=== PATIENT | female | born 1965 | race Caucasian/White ===

== ENCOUNTER 2017-09-28 02:50 | Inpatient (IN) | payer OTHER ==
[~2017-09-28] VITALS: Ht 154.9 cm; Wt 94.4 kg
[2017-09-28] VITALS (10 sets, daily range): BP systolic 115–184; BP diastolic 65–90; PULSE 83–120; RESP 14–28; TEMP 96.7–101.6; O2SAT 86–96
--- NOTE | 2017-09-28 03:10 | PD ---
HPI Chief Complaint: shortness of breath Time Seen by Provider: 03:04 Travel History International Travel<30 days: No Contact w/Intl Traveler<30days: No Traveled to known affect area: No History of Present Illness HPI 52-year-old female presents to the emergency department for complaint of fever chills cough shortness of breath wheezing and chest wall pain since . Patient has history of asthma COPD and tobaccoism. Patient states that she had the flu vaccine for the season. 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 Patient states she was seen on Thursday and started on a prednisone taper and Tamiflu but symptoms have worsened. Patient states last acetaminophen was some time early on Thursday and has taken no recent acetaminophen or ibuprofen. Patient denies any known cardiac disease hypertension dyslipidemia diabetes and has had previous pneumonia and bronchitis. [facility] Past Medical History Narrative Medical Asthma tobaccoism; splenectomy; nursing notes reviewed Social History Tobacco Use: Yes Allergies-Medications (Allergen,Severity, Reaction): Coded Allergies: bupropion (Verified Allergy, Unknown, 09/28/17) Narrative Medication Tamiflu albuterol prednisone Review of Systems Except as stated in HPI: all other systems reviewed are Neg General / Constitutional: Positive: Fever HENT: Positive: Congestion Cardiovascular: Positive: Chest Pain or Discomfort Respiratory: Positive: Cough, Wheezing Gastrointestinal: Positive: Nausea, No: Abdominal Pain Genitourinary: No: Dysuria, Flank Pain Musculoskeletal: Positive: Myalgias, Arthralgias Skin: No Rash Neurologic: No: Weakness Psychiatric: No: Anxiety Hematologic/Lymphatic: No: Lymph Node Enlargement Physical Exam Narrative GENERAL: Well-developed well-nourished female in no acute distress no respiratory distress resting supine with supplemental oxygen in place O2 saturation on 2 L/m nasal cannula 95% SKIN: Warm and dry. HEAD: Normocephalic. EYES: No scleral icterus. No injection or drainage. NECK: Supple, trachea midline. No JVD or lymphadenopathy. CARDIOVASCULAR: Increased Regular rate and rhythm without murmurs, gallops, or rubs. RESPIRATORY: Breath sounds equal bilaterally markedly diminished bilaterally with end expiratory wheezing. No accessory muscle use. GASTROINTESTINAL: Abdomen soft, non-tender, nondistended. MUSCULOSKELETAL: No cyanosis, or edema. BACK: Nontender without obvious deformity. No CVA tenderness. Data Data Last Documented VS Vital Signs Date Time Temp Pulse Resp B/P (MAP) Pulse Ox O2 Delivery O2 Flow Rate FiO2 09/28/17 04:46 99.3 105 22 132/74 (93) 92 Nasal Cannula 4.00 Orders Orders Complete Blood Count With Diff (09/28/17 03:04) Comprehensive Metabolic Panel (09/28/17 03:04) B-Type Natriuretic Peptide (09/28/17 03:04) Act Partial Throm Time (Ptt) (09/28/17 03:04) Prothrombin Time / Inr (Pt) (09/28/17 03:04) Magnesium (Mg) (09/28/17 03:04) Ckmb (Isoenzyme) Profile (09/28/17 03:04) Troponin I (09/28/17 03:04) Influenzae A/B Antigen (09/28/17 03:04) Blood Culture (09/28/17 03:04) Iv Access Insert/Monitor (09/28/17 03:04) Electrocardiogram (09/28/17 03:04) Ecg Monitoring (09/28/17 03:04) Oximetry (09/28/17 03:04) Oxygen Administration (09/28/17 03:04) Chest, Single Ap (09/28/17 03:04) Sodium Chloride 0.9% Flush (Ns Flush) (09/28/17 03:15) Methylprednisolone So Succ Inj (Solumedr (09/28/17 03:15) Albuterol-Ipratropium Neb (Duoneb Neb) (09/28/17 03:15) Lactic Acid (09/28/17 03:04) Acetaminophen (Tylenol) (09/28/17 03:15) Piperacil-Tazo 4.5 Gm Premix (Zosyn 4.5 (09/28/17 03:15) CKMB (09/28/17 03:09) CKMB% (09/28/17 03:09) Labs Laboratory Tests Test 09/28/17 03:09 09/28/17 04:32 White Blood Count 16.2 TH/MM3 Red Blood Count 4.94 MIL/MM3 Hemoglobin 15.6 GM/DL Hematocrit 46.5 % Mean Corpuscular Volume 94.2 FL Mean Corpuscular Hemoglobin 31.6 PG Mean Corpuscular Hemoglobin Concent 33.5 % Red Cell Distribution Width 13.4 % Platelet Count 357 TH/MM3 Mean Platelet Volume 8.7 FL Neutrophils (%) (Auto) 80.7 % Lymphocytes (%) (Auto) 12.6 % Monocytes (%) (Auto) 6.1 % Eosinophils (%) (Auto) 0.2 % Basophils (%) (Auto) 0.4 % Neutrophils # (Auto) 13.1 TH/MM3 Lymphocytes # (Auto) 2.0 TH/MM3 Monocytes # (Auto) 1.0 TH/MM3 Eosinophils # (Auto) 0.0 TH/MM3 Basophils # (Auto) 0.1 TH/MM3 CBC Comment AUTO DIFF Differential Comment AUTO DIFF CONFIRMED Platelet Estimate NORMAL Platelet Morphology Comment CLUMPED Red Cell Morphology Comment NORMAL Prothrombin Time 9.9 SEC Prothromb Time International Ratio 1.0 RATIO Activated Partial Thromboplast Time 28.5 SEC Blood Urea Nitrogen 21 MG/DL Creatinine 0.66 MG/DL Random Glucose 97 MG/DL Total Protein 8.0 GM/DL Albumin 3.8 GM/DL Calcium Level 9.0 MG/DL Magnesium Level 2.2 MG/DL Alkaline Phosphatase 92 U/L Aspartate Amino Transf (AST/SGOT) 34 U/L Alanine Aminotransferase (ALT/SGPT) 55 U/L Total Bilirubin 0.3 MG/DL Sodium Level 138 MEQ/L Potassium Level 3.8 MEQ/L Chloride Level 103 MEQ/L Carbon Dioxide Level 28.6 MEQ/L Anion Gap 6 MEQ/L Estimat Glomerular Filtration Rate 93 ML/MIN Total Creatine Kinase 103 U/L Creatine Kinase MB 3.4 NG/ML Troponin I LESS THAN 0.02 NG/ML B-Type Natriuretic Peptide 14 PG/ML MDM Medical Decision Making Medical Screen Exam Complete: Yes Emergency Medical Condition: Yes Medical Record Reviewed: Yes Interpretation(s) EKG: Sinus tachycardia rate [address] elevation injury pattern or ectopy noted Differential Diagnosis Exacerbation COPD, bronchitis, pneumonia, sepsis, ACS, CHF Narrative Course 52-year-old female with reported recent diagnosis of influenza receiving Tamiflu with worsening symptoms fever chills and productive cough with myalgias and arthralgias. Patient is a tobacco smoker with history of asthma and COPD. Patient placed on compliance monitor with continuous pulse oximetry supplemental oxygen 2 L/m administered and specimens collected and sent for resulting patient presumptively administered Zosyn 4.5 g IV piggyback patient is status post previous splenectomy Sepsis Criteria SIRS Criteria (2 or more): Temp > 100.9 or < 96.8, Heart rate over 90, WBC > 11663, < 4000 or > 10% bands Sepsis Criteria (SIRS+source): Infect source susp/known (pulmonary/bronchitis) Karen Tobar MD Sep 28, 2017 03:10
[2017-09-28] MEDS: RESP: ALBUTEROL 2.5 MG/IPRATROPIUM 0.5 MG NEB (SCH) INH ×2 (03:12→03:13)
[2017-09-28] MEDS ORDERED: SODIUM CHLORIDE 0.9% FLUSH 10 ML FLUSH IVF PRN (03:15)
[2017-09-28] MEDS ORDERED: ACETAMINOPHEN 325 MG TAB PO ONE (03:15)
[2017-09-28] MEDS ORDERED: PIPERACIL-TAZO 4.5 GM PREMIX 100 ML IV ONE (03:15)
[2017-09-28] MEDS ORDERED: methylPREDNISolone SOD SUCC 125 MG/2 ML VIAL IV PUSH ONE (03:15)
[2017-09-28 03:38] LABS: AUTOMATED NEUTROPHIL # 13.1 TH/MM3 (1.8-7.7); BASOPHIL # 0.1 TH/MM3 (0-0.2); BASOPHIL % 0.4 % (0.0-2.0); EOSINOPHIL % 0.2 % (0.0-4.0); HEMATOCRIT 46.5 % (35.0-46.0); HEMOGLOBIN 15.6 GM/DL (11.6-15.3); LYMPH % 12.6 % (9.0-44.0); MEAN CELL VOLUME 94.2 FL (80.0-100.0); MEAN CORPUSCULAR HEMOGLOBIN 31.6 PG (27.0-34.0); MEAN CORPUSCULAR HGB CONC 33.5 % (32.0-36.0); MEAN PLATELET VOLUME 8.7 FL (7.0-11.0); MONO % 6.1 % (0.0-8.0); NEUT % 80.7 % (16.0-70.0); PLATELET COUNT 357 TH/MM3 (150-450); RED BLOOD COUNT 4.94 MIL/MM3 (4.00-5.30); RED CELL DISTRIBUTION WIDTH 13.4 % (11.6-17.2); WHITE BLOOD COUNT 16.2 TH/MM3 (4.0-11.0)
[2017-09-28 03:45] LABS: CHLORIDE 103 MEQ/L (98-107); SODIUM (NA) 138 MEQ/L (136-145)
[2017-09-28 03:48] LABS: ALBUMIN 3.8 GM/DL (3.4-5.0); BICARBONATE 28.6 MEQ/L (21.0-32.0); GLUCOSE,RANDOM 97 MG/DL (74-106); MAGNESIUM 2.2 MG/DL (1.5-2.5)
[2017-09-28 03:49] LABS: BLOOD UREA NITROGEN 21 MG/DL (7-18)
[2017-09-28 03:50] LABS: PROTHROMBIN TIME - PATIENT 9.9 SEC (9.8-11.6)
[2017-09-28 03:52] LABS: ALT (GPT) 55 U/L (10-53); AST (GOT) 34 U/L (15-37); CREATININE 0.66 MG/DL (0.50-1.00); GLOMERULAR FILTRATION RATE 93 ML/MIN (>89)
[2017-09-28 03:53] LABS: TOTAL BILIRUBIN ADULT 0.3 MG/DL (0.2-1.0)
[2017-09-28 03:54] LABS: ALKALINE PHOSPHATASE 92 U/L (45-117)
[2017-09-28 03:57] LABS: TROPONIN I LESS THAN 0.02 NG/ML (0.02-0.05)
--- NOTE | 2017-09-28 04:02 | RADRPT ---
EXAM DATE/TIME: 09/28/2017 03:35 [place] COMPARISON: No previous studies available for comparison. INDICATIONS : Shortness of breath for 3 days ago, progressively getting worse. Pasr 6 hours chest pain and short of breath. MEDICAL HISTORY : Bronchitis, Asthma. SURGICAL HISTORY : None. ENCOUNTER: Initial ACUITY: 3 days PAIN SCORE: 8/10 LOCATION: Left chest radiating to left arm and towards the back. FINDINGS: A single view of the chest demonstrates the lungs to be symmetrically aerated without evidence of mas s, infiltrate or effusion. The cardiomediastinal contours are unremarkable. Osseous structures are intact. CONCLUSION: No acute disease. Dale Padilla MD on September 28, 2017 at 4:00 Board Certified Radiologist. This report was verified electronically.
[2017-09-28] MEDS ORDERED: SODIUM CHLOR 0.9% 1000 ML INJ 1,000 ML IV SCH (05:05)
[2017-09-28] MEDS ORDERED: MAGNESIUM HYDROXIDE SUSP 30 ML CUP PO PRN (05:15)
[2017-09-28] MEDS ORDERED: MORPHINE SULFATE 2 MG/ML INJ IV PUSH PRN (05:15)
[2017-09-28] MEDS ORDERED: SENNOSIDES 8.6 MG TAB PO PRN (05:15)
[2017-09-28] MEDS ORDERED: Vancomycin Consult Pharmacy 1 EA OTHER SCH (05:15)
[2017-09-28] MEDS ORDERED: LACTULOSE SYRUP 20 GM/30 ML CUP PO PRN (05:15)
[2017-09-28] MEDS ORDERED: AZITHROMYCIN INJ 500 MG in SODIUM CHLOR 0.9% 250 ML INJ 250 ML IV ONE (05:15)
[2017-09-28] MEDS ORDERED: BISACODYL 10 MG SUPP RECTAL PRN (05:15)
[2017-09-28] MEDS ORDERED: ONDANSETRON HCL 4 MG/2 ML VIAL IVP PRN (05:15)
[2017-09-28] MEDS ORDERED: SODIUM CHLORIDE 0.9% FLUSH 10 ML FLUSH IV FLUSH PRN (05:15)
[2017-09-28] MEDS: methylPREDNISolone SOD SUCC 40 MG/1 ML VIAL IV PUSH SCH ×4 (05:51→23:15)
[2017-09-28] MEDS ORDERED: VANCOMYCIN 1,500 MG/NS 500 ML IV ONE ×2 (07:00)
[2017-09-28] MEDS: DOCUSATE SODIUM 50 MG/SENNA 8.6 MG TAB PO SCH ×3 (09:00→22:06)
[2017-09-28] MEDS: guaiFENesin E.R. 600 MG TAB PO SCH ×2 (09:46→22:05)
[2017-09-28] MEDS: SODIUM CHLORIDE 0.9% FLUSH 10 ML FLUSH IV FLUSH SCH ×2 (09:47→22:05)
[2017-09-28] MEDS: RESP: ALBUTEROL 2.5 MG/IPRATROPIUM 0.5 MG NEB (PRN) NEB ×5 (10:01→23:30)
--- NOTE | 2017-09-28 11:00 | HHI.HP ---
HPI [facility] Primary [facility] Physician Unknown Admission Diagnosis exac copd/bronchitis; sepsis Diagnoses: (1) Sepsis (2) Chronic obstructive pulmonary disease with hypoxia (3) COPD with exacerbation (4) Bronchitis (5) Respiratory failure with hypoxia Chief Complaint: febrile episode, cough and wheezing Travel History International Travel<30 Days: No Contact w/Intl Traveler <30 Da: No Traveled to Known Affected Are: No Sepsis Criteria SIRS Criteria (2 or more): Temp > 100.9 or < 96.8, Heart rate over 90, WBC > 91776, < 4000 or > 10% bands Sepsis Criteria (SIRS+source): Infect source susp/known History of Present Illness 52 year-old female with a history of COPD presented to the ED for evaluation of Febrile episode and shortness of breath associated with cough production along with wheezing since , 09/24/17 Patient also reported chest wall pain mostly associated with coughing and deep inspiration. Patient was seen at a local urgent care on Thursday and was diagnosed with flu for which was prescribed Tamiflu and was started on prednisone taper however denies any improvement of her symptoms. Also reported stress increased frequency use of inhaler without any significant improvements of her shortness of breath as well as wheezing. She endorsed 30+ years of tobacco use. On Admission, patient was febrile with MAXIMUM TEMPERATURE of 101.6, HR 111, RR 28, BP 156/80 and 86% on RA. Chest x- ray was negative. She has no GI bleed. Review of Systems Except as stated in HPI: all other systems reviewed are Neg Past Family Social History Past Medical History COPD Asthma Tobaccoism Past Surgical History Splenectomy Appendectomy Hernia repair Reported Medications Tamiflu Allergies: Coded Allergies: bupropion (Verified Allergy, Unknown, 09/28/17) Family History Mother from complication of COPD Social History patient smokes one pack per day 36+ years Physical Exam Vital Signs Vital Signs Date Time Temp Pulse Resp B/P (MAP) Pulse Ox O2 Delivery O2 Flow Rate FiO2 09/28/17 10:04 95 Nasal Cannula 4.00 09/28/17 08:00 97.6 83 20 115/65 (82) 96 09/28/17 06:15 09/28/17 06:01 98.8 95 20 140/84 (102) 94 Nasal Cannula 4.00 09/28/17 04:46 99.3 105 22 132/74 (93) 92 Nasal Cannula 4.00 09/28/17 04:42 85 Room Air 09/28/17 04:00 100.5 120 22 148/74 (98) 93 Nasal Cannula 4.00 09/28/17 03:05 92 Nasal Cannula 4.00 09/28/17 02:55 101.6 111 28 156/80 (105) 86 Physical Exam GENERAL: This is a well-nourished, well-developed patient, in no apparent distress. SKIN: No rashes, ecchymoses or lesions. Cool and dry. HEAD: Atraumatic. Normocephalic. No temporal or scalp tenderness. EYES: Pupils equal round and reactive. Extraocular motions intact. No scleral icterus. No injection or drainage. ENT: Nose without bleeding, purulent drainage or septal hematoma. Throat without erythema, tonsillar hypertrophy or exudate. Uvula midline. Airway patent. NECK: Trachea midline. No JVD or lymphadenopathy. Supple, nontender, no meningeal signs. CARDIOVASCULAR: Regular rate and rhythm without murmurs, gallops, or rubs. RESPIRATORY: Clear to auscultation. Breath sounds decrease bilaterally.+ Bilateral expiratory wheezes GASTROINTESTINAL: Abdomen soft, non-tender, nondistended. No hepato-splenomegaly , or palpable masses. No guarding. MUSCULOSKELETAL: Extremities without clubbing, cyanosis, or edema. No joint tenderness, effusion, or edema noted. No calf tenderness. Negative Homans sign bilaterally. NEUROLOGICAL: Awake and alert. Cranial nerves II through XII intact. Motor and sensory grossly within normal limits. Five out of 5 muscle strength in all muscle groups. Normal speech. Laboratory Laboratory Tests Test 09/28/17 03:09 09/28/17 04:32 White Blood Count 16.2 Red Blood Count 4.94 Hemoglobin 15.6 Hematocrit 46.5 Mean Corpuscular Volume 94.2 Mean Corpuscular Hemoglobin 31.6 Mean Corpuscular Hemoglobin Concent 33.5 Red Cell Distribution Width 13.4 Platelet Count 357 Mean Platelet Volume 8.7 Neutrophils (%) (Auto) 80.7 Lymphocytes (%) (Auto) 12.6 Monocytes (%) (Auto) 6.1 Eosinophils (%) (Auto) 0.2 Basophils (%) (Auto) 0.4 Neutrophils # (Auto) 13.1 Lymphocytes # (Auto) 2.0 Monocytes # (Auto) 1.0 Eosinophils # (Auto) 0.0 Basophils # (Auto) 0.1 CBC Comment AUTO DIFF Differential Comment AUTO DIFF CONFIRMED Platelet Estimate NORMAL Platelet Morphology Comment CLUMPED Red Cell Morphology Comment NORMAL Prothrombin Time 9.9 Prothromb Time International Ratio 1.0 Activated Partial Thromboplast Time 28.5 Blood Urea Nitrogen 21 Creatinine 0.66 Random Glucose 97 Total Protein 8.0 Albumin 3.8 Calcium Level 9.0 Magnesium Level 2.2 Alkaline Phosphatase 92 Aspartate Amino Transf (AST/SGOT) 34 Alanine Aminotransferase (ALT/SGPT) 55 Total Bilirubin 0.3 Sodium Level 138 Potassium Level 3.8 Chloride Level 103 Carbon Dioxide Level 28.6 Anion Gap 6 Estimat Glomerular Filtration Rate 93 Total Creatine Kinase 103 Creatine Kinase MB 3.4 Troponin I LESS THAN 0.02 B-Type Natriuretic Peptide 14 Lactic Acid Level 1.4 Date/Time Source Procedure Growth Status 09/28/17 03:14 Blood Peripheral Aerobic Blood Culture Pending Received 09/28/17 03:14 Blood Peripheral Anaerobic Blood Culture Pending Received 09/28/17 03:20 Nasal Washing Influenza Types A,B Antigen (DELIO) - Final NEGATIVE FOR FLU A AND B ANTIGEN.... Complete Result Diagram: 09/28/1730809/28/17308 Imaging Last Impressions Chest X-Ray 09/28/17303 Signed Impressions: Service Date/Time: Thursday, September 28, 2017 03:35 - CONCLUSION: No acute disease. Dale Padilla MD Septic Shock Reassessment Septic shock perfusion: reassessment completed Caprini VTE Risk Assessment Caprini VTE Risk Assessment: No/Low Risk (score <= 1) Caprini Risk Assessment Model Point Value = 1 Point Value = 2 Point Value = 3 Point Value = 5 Age 41-60 Minor surgery BMI > 25 kg/m2 Swollen legs Varicose veins or History of unexplained or recurrent spontaneous Oral contraceptives or hormone replacement Sepsis (< 1 month) Serious lung disease, including pneumonia (< 1 month) Abnormal pulmonary function Acute myocardial infarction Congestive heart failure (< 1 month) History of inflammatory bowel disease Medical patient at bed rest Age 61-74 Arthroscopic surgery Major open surgery (> 45 min) Laparoscopic surgery (> 45 min) Malignancy Confined to bed (> 72 hours) Immobilizing plaster cast Central venous access Age >= 75 History of VTE Family history of VTE Factor V Leiden Prothrombin [id number] Lupus anticoagulant Anticardiolipin antibodies Elevated serum homocysteine Heparin-induced thrombocytopenia Other congenital or acquired thrombophilia Stroke (< 1 month) Elective arthroplasty Hip, pelvis, or leg fracture Acute spinal cord injury (< 1 month) Prophylaxis Regimen Total Risk Factor Score Risk Level Prophylaxis Regimen 0-1 Low Early ambulation 2 Moderate Order ONE of the following: *Sequential Compression Device (SCD) *Heparin 5000 units SQ BID 3-4 Higher Order ONE of the following medications: *Heparin 5000 units SQ TID *Enoxaparin/Lovenox 40 mg SQ daily (WT < 150 kg, CrCl > 30 mL/min) *Enoxaparin/Lovenox 30 mg SQ daily (WT < 150 kg, CrCl > 10-29 mL/min) *Enoxaparin/Lovenox 30 mg SQ BID (WT < 150 kg, CrCl > 30 mL/min) AND/OR *Sequential Compression Device (SCD) 5 or more Highest Order ONE of the following medications: *Heparin 5000 units SQ TID (Preferred with Epidurals) *Enoxaparin/Lovenox 40 mg SQ daily (WT < 150 kg, CrCl > 30 mL/min) *Enoxaparin/Lovenox 30 mg SQ daily (WT < 150 kg, CrCl > 10-29 mL/min) *Enoxaparin/Lovenox 30 mg SQ BID (WT < 150 kg, CrCl > 30 mL/min) AND *Sequential Compression Device (SCD) Assessment and Plan Problem List: (1) Sepsis ICD Code: A41.9 - Sepsis, unspecified organism (2) Respiratory failure with hypoxia ICD Code: J96.91 - Respiratory failure, unspecified with hypoxia (3) Chronic obstructive pulmonary disease with hypoxia ICD Code: J44.9 - Chronic obstructive pulmonary disease, unspecified; R09.02 - Hypoxemia (4) Bronchitis ICD Code: J40 - Bronchitis, not specified as acute or chronic (5) COPD with exacerbation ICD Code: J44.1 - Chronic obstructive pulmonary disease with (acute) exacerbation Assessment and Plan 52-year-old female with Sepsis: Temp > 100.9 or < 96.8, Heart rate over 90, WBC > 08779, < 4000 or > 10 % bands; Infect source susp/known (Bronchitis). Flu a and B antigen negative s/p azithromycin and Zosyn IV 1 in ED Currently on cefepime and IV pending culture report Respiratory failure with hypoxia COPD with hypoxia COPD exacerbation Bronchitis Chest x-ray noted and review by me without any cardio pulmonary disease Currently on Solu-Medrol 40 mg IV every 6 hours, will add Spiriva and Symbicort, duo Neb scheduled and when necessary continue with Mucinex Status post azithromycin and Zosyn IV 1 in ED, currently on cefepime IV Maintain oxygen saturation above 92%'s, Acapella and sent to spirometry at bedside. Consider respiratory walk test prior to discharge Tobacco counseling cessation provided Pulmonary medicine consultation when necessary Tobaccoism Tobacco counseling cessation provided DVT prophylaxis: Bilateral SCDs Code Status Full code Discussed Condition With Patient Physician Certification 2 Midnight Certification Type: Admission for Inpatient Services Order for Inpatient Services The services are ordered in accordance with Medicare regulations or non- Medicare payer requirements, as applicable. In the case of services not specified as inpatient-only, they are appropriately provided as inpatient services in accordance with the 2-midnight benchmark. Estimated LOS (days): 2 days is the estimated time the patient will need to remain in the hospital, assuming treatment plan goals are met and no additional complications. Post-Hospital Plan: Not yet determined Sigifredo Castillo MD Sep 28, 2017 11:00
[2017-09-28] MEDS: ACETAMINOPHEN 325 MG TAB PO PRN (15:52)
[2017-09-28] MEDS: CEFEPIME INJ 1,000 MG in SODIUM CHLORIDE 0.9% INJ 100 ML IV SCH (17:32)
--- NOTE | 2017-09-28 18:48 | EKG ---
Date Performed: 09/28/2017 Time Performed: 03:09:12 PTAGE: 52 years EKG: SINUS TACHYCARDIA ABNORMAL RHYTHM ECG NO PREVIOUS TRACING DOCTOR: Jose Enrique Coronado Interpretating Date/Time 09/28/2017 18:47:43
[2017-09-28] MEDS: BUDESONIDE-FORMOTEROL 160/4.5 MCG INHALER INH SCH (21:00)
[2017-09-28] MEDS: VANCOMYCIN INJ 1,250 MG in SODIUM CHLOR 0.9% 250 ML INJ 250 ML IV SCH (22:06)
[2017-09-28] MEDS: ACETAMINOPHEN/HYDROcodone 325 MG/5 MG TAB PO PRN (22:06)
[2017-09-28] MEDS ORDERED: BENZONATATE 100 MG CAP PO ONE (23:45)
[2017-09-29] VITALS (8 sets, daily range): BP systolic 127–165; BP diastolic 61–80; PULSE 83–101; RESP 14–20; TEMP 96.1–98.2; O2SAT 9–95
[2017-09-29] MEDS: CEFEPIME INJ 1,000 MG in SODIUM CHLORIDE 0.9% INJ 100 ML IV SCH ×2 (05:13→17:40)
[2017-09-29] MEDS: methylPREDNISolone SOD SUCC 40 MG/1 ML VIAL IV PUSH SCH ×2 (05:13→17:40)
[2017-09-29] MEDS: RESP: ALBUTEROL 2.5 MG/IPRATROPIUM 0.5 MG NEB (PRN) NEB ×6 (06:31→23:39)
[2017-09-29 06:38] LABS: BASOPHIL # 0.1 TH/MM3 (0-0.2); BASOPHIL % 0.3 % (0.0-2.0); EOSINOPHIL % 0.1 % (0.0-4.0); HEMATOCRIT 42.4 % (35.0-46.0); HEMOGLOBIN 13.8 GM/DL (11.6-15.3); LYMPH % 4.9 % (9.0-44.0); LYMPHOCYTE # 1.1 TH/MM3 (1.0-4.8); MEAN CELL VOLUME 93.8 FL (80.0-100.0); MEAN CORPUSCULAR HEMOGLOBIN 30.5 PG (27.0-34.0); MEAN CORPUSCULAR HGB CONC 32.5 % (32.0-36.0); MEAN PLATELET VOLUME 9.5 FL (7.0-11.0); MONO % 2.2 % (0.0-8.0); MONOCYTE # 0.5 TH/MM3 (0-0.9); NEUT % 92.5 % (16.0-70.0); PLATELET COUNT 362 TH/MM3 (150-450); RED BLOOD COUNT 4.52 MIL/MM3 (4.00-5.30); RED CELL DISTRIBUTION WIDTH 13.4 % (11.6-17.2); WHITE BLOOD COUNT 22.7 TH/MM3 (4.0-11.0)
[2017-09-29 06:49] LABS: CHLORIDE 107 MEQ/L (98-107); SODIUM (NA) 141 MEQ/L (136-145)
[2017-09-29 06:54] LABS: CALCIUM 8.4 MG/DL (8.5-10.1)
[2017-09-29 06:55] LABS: ALBUMIN 3.2 GM/DL (3.4-5.0); BICARBONATE 26.2 MEQ/L (21.0-32.0); BLOOD UREA NITROGEN 13 MG/DL (7-18); GLUCOSE,RANDOM 132 MG/DL (74-106)
[2017-09-29 06:58] LABS: ALT (GPT) 81 U/L (10-53); AST (GOT) 49 U/L (15-37); CREATININE 0.52 MG/DL (0.50-1.00); GLOMERULAR FILTRATION RATE 123 ML/MIN (>89)
[2017-09-29 07:00] LABS: TOTAL BILIRUBIN ADULT 0.3 MG/DL (0.2-1.0)
[2017-09-29 07:01] LABS: ALKALINE PHOSPHATASE 77 U/L (45-117)
[2017-09-29] MEDS: DOCUSATE SODIUM 50 MG/SENNA 8.6 MG TAB PO SCH ×2 (07:22→19:45)
[2017-09-29] MEDS: BUDESONIDE-FORMOTEROL 160/4.5 MCG INHALER INH SCH ×2 (07:22→19:44)
[2017-09-29 08:00] LABS: BANDS 6 % (0-6); CORRECTED NUCLEATED RBC 1 /100 WBC (0-0); LYMPHOCYTES 9 % (9-44); MONOCYTES 2 % (0-8); NEUTROPHIL # MANUAL DIFF 20.2 TH/MM3 (1.8-7.7); NUCLEATED RED BLOOD CELL 1 (0-0); POLYS (SEG NEUTROPHILS) 83 % (16-70)
[2017-09-29] MEDS: guaiFENesin E.R. 600 MG TAB PO SCH ×2 (08:25→20:54)
[2017-09-29] MEDS: SODIUM CHLORIDE 0.9% FLUSH 10 ML FLUSH IV FLUSH SCH ×2 (08:26→20:54)
[2017-09-29] MEDS: TIOTROPIUM BROMIDE 18 MCG INH INH SCH (08:26)
--- NOTE | 2017-09-29 08:52 | HHI.PR ---
Subjective Remarks Pt feeling much better today. has been ambulating down the halls. tolerating a diet. no abdominal pain, nausea or vomiting. has a PCP whom she follows w regularly. Objective Vitals Vital Signs Date Time Temp Pulse Resp B/P (MAP) Pulse Ox O2 Delivery O2 Flow Rate FiO2 09/29/17 08:44 93 21 09/29/17 04:00 93 Room Air 09/29/17 00:00 96.7 98 16 137/69 (91) 95 09/28/17 20:50 96 Nasal Cannula 2.00 09/28/17 20:00 96 Nasal Cannula 2.00 09/28/17 20:00 97.8 94 18 158/84 (108) 96 09/28/17 18:00 97.7 88 14 157/76 (103) 94 09/28/17 12:00 96.7 100 20 184/90 (121) 92 09/28/17 10:04 95 Nasal Cannula 4.00 I/O 09/28/17 09/28/17 09/28/17 09/29/17 09/29/17 09/29/17 07:00 15:00 23:00 07:00 15:00 23:00 Intake Total 100 ml 120 ml 340 ml 1450 ml Balance 100 ml 120 ml 340 ml 1450 ml Intake Oral 120 ml 240 ml 1100 ml IV Total 100 ml 100 ml 350 ml # Voids 4 # Bowel Movements 0 Result Diagram: 09/29/17 0505 09/29/17 0505 Imaging Last Impressions Chest X-Ray 09/28/17 0304 Signed Impressions: Service Date/Time: Thursday, September 28, 2017 03:35 - CONCLUSION: No acute disease. Dale Padilla MD Objective Remarks GENERAL: This is a well-nourished, well-developed patient EYES: Extraocular motions intact. ENT: Nose without drainage. Airway patent. NECK: Trachea midline. CARDIOVASCULAR: Regular rate and rhythm without murmurs RESPIRATORY: Clear to auscultation. Breath sounds decrease bilaterally.+ faint bilateral expiratory wheezes GASTROINTESTINAL: Abdomen soft, non-tender, nondistended. No guarding. MUSCULOSKELETAL: sitting up eating breakfast, moving extremities. NEUROLOGICAL: Awake and alert. Normal speech. A/P Problem List: (1) Sepsis ICD Code: A41.9 - Sepsis, unspecified organism (2) Respiratory failure with hypoxia ICD Code: J96.91 - Respiratory failure, unspecified with hypoxia (3) Chronic obstructive pulmonary disease with hypoxia ICD Code: J44.9 - Chronic obstructive pulmonary disease, unspecified; R09.02 - Hypoxemia (4) Bronchitis ICD Code: J40 - Bronchitis, not specified as acute or chronic (5) COPD with exacerbation ICD Code: J44.1 - Chronic obstructive pulmonary disease with (acute) exacerbation Assessment and Plan 52-year-old female with Sepsis: Temp > 100.9 or < 96.8, Heart rate over 90, WBC > 41995, < 4000 or > 10 % bands; Infect source susp/known (Bronchitis). Flu a and B antigen negative s/p azithromycin and Zosyn IV 1 in ED Currently on cefepime IV w blood cx pending Respiratory failure with hypoxia COPD with hypoxia COPD exacerbation Bronchitis Chest x-ray noted without any cardio pulmonary disease decrease Solu-Medrol 40 mg IV every 12 hours, on Spiriva and Symbicort, duo Neb scheduled and when necessary continue with Mucinex Status post azithromycin and Zosyn IV 1 in ED, currently on cefepime IV Maintain oxygen saturation above 92%'s, Acapella and sent to spirometry at bedside. order respiratory walk test prior to discharge Tobacco counseling cessation provided Pulmonary medicine consultation when necessary Leukocytosis: most likely from steroid use. Pt is clinically improving. Afebrile. Mildly elevated LFTs noted: pt is asymptomatic. Monitor closely while inpatient and if not worsening may monitor as an outpatient. Tobaccoism Tobacco counseling cessation provided DVT prophylaxis: Bilateral SCDs Discharge Planning f/u on blood cx. walk test anticipate d/c later today or tomorrow pending Blood cx results Thaira Peter MD Sep 29, 2017 08:52
[2017-09-29] MEDS: VANCOMYCIN INJ 1,250 MG in SODIUM CHLOR 0.9% 250 ML INJ 250 ML IV SCH ×2 (09:53→22:57)
[2017-09-29] MEDS: ACETAMINOPHEN 325 MG TAB PO PRN ×2 (10:04→15:38)
[2017-09-29] MEDS: BENZONATATE 100 MG CAP PO PRN (20:55)
[2017-09-29] MEDS ORDERED: PHARMACY ORDERED LAB ONE (21:45)
[2017-09-29] MEDS: ACETAMINOPHEN/HYDROcodone 325 MG/5 MG TAB PO PRN (22:58)
[2017-09-30] VITALS: BP 138/85; PULSE 82; RESP 18; TEMP 96.2; O2SAT 94
[2017-09-30] MEDS: BENZONATATE 100 MG CAP PO PRN ×2 (00:20→06:13)
[2017-09-30] MEDS: CEFEPIME INJ 1,000 MG in SODIUM CHLORIDE 0.9% INJ 100 ML IV SCH (06:07)
[2017-09-30] MEDS: methylPREDNISolone SOD SUCC 40 MG/1 ML VIAL IV PUSH SCH (06:07)
[2017-09-30 06:37] LABS: AUTOMATED NEUTROPHIL # 18.6 TH/MM3 (1.8-7.7); BASOPHIL # 0.1 TH/MM3 (0-0.2); BASOPHIL % 0.3 % (0.0-2.0); CHLORIDE 105 MEQ/L (98-107); HEMATOCRIT 41.7 % (35.0-46.0); HEMOGLOBIN 13.2 GM/DL (11.6-15.3); LYMPH % 9.7 % (9.0-44.0); LYMPHOCYTE # 2.2 TH/MM3 (1.0-4.8); MEAN CELL VOLUME 93.5 FL (80.0-100.0); MEAN CORPUSCULAR HEMOGLOBIN 29.7 PG (27.0-34.0); MEAN CORPUSCULAR HGB CONC 31.8 % (32.0-36.0); MEAN PLATELET VOLUME 8.7 FL (7.0-11.0); MONO % 6.4 % (0.0-8.0); MONOCYTE # 1.4 TH/MM3 (0-0.9); NEUT % 83.6 % (16.0-70.0); PLATELET COUNT 390 TH/MM3 (150-450); RED BLOOD COUNT 4.46 MIL/MM3 (4.00-5.30); RED CELL DISTRIBUTION WIDTH 13.8 % (11.6-17.2); SODIUM (NA) 140 MEQ/L (136-145); WHITE BLOOD COUNT 22.3 TH/MM3 (4.0-11.0)
[2017-09-30 06:41] LABS: ALBUMIN 3.2 GM/DL (3.4-5.0); BICARBONATE 28.1 MEQ/L (21.0-32.0); BLOOD UREA NITROGEN 19 MG/DL (7-18); CALCIUM 8.8 MG/DL (8.5-10.1); GLUCOSE,RANDOM 111 MG/DL (74-106)
[2017-09-30 06:44] LABS: ALT (GPT) 104 U/L (10-53); AST (GOT) 54 U/L (15-37); CREATININE 0.57 MG/DL (0.50-1.00); GLOMERULAR FILTRATION RATE 111 ML/MIN (>89)
[2017-09-30 06:46] LABS: TOTAL BILIRUBIN ADULT 0.3 MG/DL (0.2-1.0); TOTAL PROTEIN 6.8 GM/DL (6.4-8.2)
[2017-09-30 06:47] LABS: ALKALINE PHOSPHATASE 77 U/L (45-117)
[2017-09-30] MEDS: RESP: ALBUTEROL 2.5 MG/IPRATROPIUM 0.5 MG NEB (PRN) NEB (07:54)
[2017-09-30 07:55] VITALS: O2SAT 94
[2017-09-30 08:00] VITALS: BP 178/93; PULSE 76; RESP 16; TEMP 97.6; O2SAT 94
[2017-09-30] MEDS ORDERED: Budeson-Formot 160-4.5 Mcg Inh INH (08:35)
[2017-09-30] MEDS ORDERED: PRED20 PO (08:35)
[2017-09-30] MEDS ORDERED: SPIRCAP INH (08:35)
[2017-09-30] MEDS ORDERED: AZIT500T2 PO (08:35)
[2017-09-30] MEDS ORDERED: BENZ100 PO (08:35)
[2017-09-30] MEDS ORDERED: HYDR-3516 PO (08:36)
--- NOTE | 2017-09-30 08:46 | HHI.DS ---
Discharge Summary Admission Date Sep 28, 2017 at 05:07 Discharge Date: Sep 30, 2017 Admitting Diagnosis exac copd/bronchitis; sepsis (1) Sepsis ICD Code: A41.9 - Sepsis, unspecified organism (2) Respiratory failure with hypoxia ICD Code: J96.91 - Respiratory failure, unspecified with hypoxia (3) Chronic obstructive pulmonary disease with hypoxia ICD Code: J44.9 - Chronic obstructive pulmonary disease, unspecified; R09.02 - Hypoxemia (4) Bronchitis ICD Code: J40 - Bronchitis, not specified as acute or chronic (5) COPD with exacerbation ICD Code: J44.1 - Chronic obstructive pulmonary disease with (acute) exacerbation (6) Transaminitis ICD Code: R74.0 - Nonspecific elevation of levels of transaminase and lactic acid dehydrogenase [LDH] Procedures none Brief History - From Admission 52 year-old female with a history of COPD presented to the ED for evaluation of Febrile episode and shortness of breath associated with cough production along with wheezing since , 09/24/17 Patient also reported chest wall pain mostly associated with coughing and deep inspiration. Patient was seen at a local urgent care on Thursday and was diagnosed with flu for which was prescribed Tamiflu and was started on prednisone taper however denies any improvement of her symptoms. Also reported stress increased frequency use of inhaler without any significant improvements of her shortness of breath as well as wheezing. She endorsed 30+ years of tobacco use. On Admission, patient was febrile with MAXIMUM TEMPERATURE of 101.6, HR 111, RR 28, BP 156/80 and 86% on RA. Chest x- ray was negative. She has no GI bleed. CBC/BMP: 09/30/17 0445 09/30/17 0445 Significant Findings Laboratory Tests Test 09/28/17 03:09 09/28/17 04:32 09/29/17 05:05 09/30/17 04:45 White Blood Count 16.2 TH/MM3 (4.0-11.0) 22.7 TH/MM3 (4.0-11.0) 22.3 TH/MM3 (4.0-11.0) Hemoglobin 15.6 GM/DL (11.6-15.3) Hematocrit 46.5 % (35.0-46.0) Neutrophils (%) (Auto) 80.7 % (16.0-70.0) 92.5 % (16.0-70.0) 83.6 % (16.0-70.0) Neutrophils # (Auto) 13.1 TH/MM3 (1.8-7.7) 21.0 TH/MM3 (1.8-7.7) 18.6 TH/MM3 (1.8-7.7) Monocytes # (Auto) 1.0 TH/MM3 (0-0.9) 1.4 TH/MM3 (0-0.9) Platelet Morphology Comment CLUMPED (NORMAL) Blood Urea Nitrogen 21 MG/DL (7-18) 19 MG/DL (7-18) Alanine Aminotransferase (ALT/SGPT) 55 U/L (10-53) 81 U/L (10-53) 104 U/L (10-53) Troponin I LESS THAN 0.02 NG/ML Lymphocytes (%) (Auto) 4.9 % (9.0-44.0) Neutrophils % (Manual) 83 % (16-70) Neutrophils # (Manual) 20.2 TH/MM3 (1.8-7.7) Nucleated Red Blood Cells 1 /100 WBC (0-0) Random Glucose 132 MG/DL (74-106) 111 MG/DL (74-106) Albumin 3.2 GM/DL (3.4-5.0) 3.2 GM/DL (3.4-5.0) Calcium Level 8.4 MG/DL (8.5-10.1) Aspartate Amino Transf (AST/SGOT) 49 U/L (15-37) 54 U/L (15-37) Mean Corpuscular Hemoglobin Concent 31.8 % (32.0-36.0) Imaging Last Impressions Chest X-Ray 09/28/17 0304 Signed Impressions: Service Date/Time: Thursday, September 28, 2017 03:35 - CONCLUSION: No acute disease. Dale Padilla MD PE at Discharge GENERAL: This is a well-nourished, well-developed patient EYES: Extraocular motions intact. ENT: Nose without drainage. Airway patent. NECK: Trachea midline. CARDIOVASCULAR: Regular rate and rhythm without murmurs RESPIRATORY: Clear to auscultation. Breath sounds decrease bilaterally.+ faint bilateral expiratory wheezes GASTROINTESTINAL: Abdomen soft, non-tender, nondistended. No guarding. MUSCULOSKELETAL: sitting up eating breakfast, moving extremities. NEUROLOGICAL: Awake and alert. Normal speech. Pt update on day of discharge Pt feeling much better. SOB much improved. passed her walk test. no nausea or vomiting. tolerating a diet. no abdominal pain. hoping to go home today. would like a Note. Works as a [employer] Hospital Course Admitted for Sepsis: Temp 101.6, Heart rate 111, WBC 16.2. Infect source susp/ known (Bronchitis). Flu a and B antigen negative s/p azithromycin and Zosyn IV 1 in ED Currently on cefepime IV w blood cx neg x 1 Pt also presented w Respiratory failure with hypoxia secondary to COPD exacerbation Chest x-ray noted without any cardio pulmonary disease received Solu-Medrol and will transition to prednisone taper as an outpatient , on Spiriva and Symbicort, has Nebs and nebulizer at home which she will continue as needed. script for tessalon pearls. Passes walk test. Leukocytosis: most likely from steroid use. Pt clinically is doing well. Mildly elevated LFTs noted: pt is asymptomatic. Monitor as an outpatient and if pt LFTs continue to trend up will need outpatient work-up. Pt comfortable w this plan. Tobaccoism Tobacco counseling cessation provided If blood cx neg x 2 days, will d/c home today Pt Condition on Discharge: Stable Discharge Disposition: Discharge Home Discharge Time: > 30 minutes Discharge Instructions DIET: Follow Instructions for: As Tolerated, No Restrictions Activities you can perform: Regular-No Restrictions Follow up Referrals: PCP Follow-up - 3-5 Days New Orders: COMP MET PROF (CMP) - 2-3 Days New Medications: Azithromycin (Azithromycin) 500 Mg Tab 500 MG PO DAILY for Infection, #3 TAB 0 Refills Prednisone (Prednisone) 20 Mg Tab 20 MG PO DIRECTED for Inflammation, #5 TAB 0 Refills 20 MG daily x 3 days, then 10 MG daily x 3 days Benzonatate (Tessalon Perles) 100 Mg Cap 200 MG PO TID PRN for COUGH, #20 CAP Hydrocodone/Acetaminophen (Hydrocodone-Acetamin 5-325 mg) 5 Mg-325 Mg Tablet 1 TAB PO Q4H PRN for PAIN SCALE 6 TO 10, #5 Tiotropium Inh (Spiriva Handihaler) 18 Mcg Cap 18 MCG INH DAILY, #1 CAP 1 capsule = 18 mcg [Budeson-Formot 160-4.5 Mcg Inh] () 60 PUFF AERO 2 PUFF INH Q12HR, #1 Tahira Peter MD Sep 30, 2017 08:46
[2017-09-30] MEDS: TIOTROPIUM BROMIDE 18 MCG INH INH SCH (09:00)
[2017-09-30] MEDS: BUDESONIDE-FORMOTEROL 160/4.5 MCG INHALER INH SCH (09:00)
[2017-09-30] MEDS: DOCUSATE SODIUM 50 MG/SENNA 8.6 MG TAB PO SCH (09:00)
[2017-09-30] MEDS: guaiFENesin E.R. 600 MG TAB PO SCH (09:20)
[2017-09-30] MEDS: SODIUM CHLORIDE 0.9% FLUSH 10 ML FLUSH IV FLUSH SCH (09:21)
[2017-09-30] MEDS: VANCOMYCIN INJ 1,250 MG in SODIUM CHLOR 0.9% 250 ML INJ 250 ML IV SCH (10:00)
== END 2017-09-30 11:45 | disposition home or self-care (01) | DRG 871 ==
LOC: PHED 02:50 → PHEDA 05:07 → PH3B 06:28
PROVIDERS: ADMIT Hospitalist; ATTEND Hospitalist
DX: A41.9 Sepsis, unspecified organism (principal); J96.91 Respiratory failure, unspecified with hypoxia; J44.1 Chronic obstructive pulmonary disease with (acute) exacerbation; F17.210 Nicotine dependence, cigarettes, uncomplicated; Z71.6 Tobacco abuse counseling; Z90.81 Acquired absence of spleen
CPT/HCPCS: 71045; 80053; 82550; 82552; 83605; 83735; 83880; 84484; 85007; 85025; 85027; 85610; 85730; 87040; 87804; 93005; 94150; 94618; 94640; 94664; 94667; 94668; 96365; 96375; J0456; J0692; J2405; J2543; J2920; J2930; J3370; J7030; J7040; J7050